=== PATIENT | female | born 1955 | race Caucasian/White ===

== ENCOUNTER 2020-06-23 09:47 | Day surgery (SDC) | payer OTHER ==
[2020-06-19 10:22] VITALS: BMI 31.4
[2020-06-23] MEDS ORDERED: ACETAMINOPHEN 325 MG TABLET (FP) ONE (12:23)
[2020-06-23] MEDS ORDERED: ACETAMINOPHEN 325 MG TABLET (FP) PO ONE (12:25)
[2020-06-23 12:36] VITALS: TEMP 97.8
[2020-06-23 13:05] VITALS: BP 183/74; PULSE 75
== END 2020-06-23 13:00 | disposition home or self-care (01) ==
LOC: FASU-ENDO 09:47
PROVIDERS: ATTEND Internal Medicine Gastroenterology
PROC: 0DJ08ZZ Inspection of Upper Intestinal Tract, Via Natural or Artificial Opening Endoscopic (ICD-10-PCS; principal; 2020-06-23 12:06)
DX: R12 Heartburn (principal); Z88.2 Allergy status to sulfonamides
CPT/HCPCS: 82962

== ENCOUNTER 2020-08-04 11:42 | Day surgery (SDC) | payer OTHER ==
[2020-08-02 14:11] VITALS: BMI 31.4
[2020-08-04] MEDS ORDERED: PROPOFOL 20 ML ONE ×3 (13:03)
[2020-08-04 13:52] VITALS: PULSE 77; TEMP 97.8
[2020-08-04 14:12] VITALS: BP 130/67
== END 2020-08-04 14:25 | disposition home or self-care (01) ==
LOC: FASU-ENDO 11:42
PROVIDERS: ATTEND Internal Medicine Gastroenterology
PROC: 0DJ08ZZ Inspection of Upper Intestinal Tract, Via Natural or Artificial Opening Endoscopic (ICD-10-PCS; principal; 2020-08-04 13:06)
DX: R10.13 Epigastric pain (principal); Z53.8 Procedure and treatment not carried out for other reasons; I10 Essential (primary) hypertension; E11.9 Type 2 diabetes mellitus without complications
CPT/HCPCS: 82962

== ENCOUNTER 2022-03-11 04:06 | Day surgery (SDC) | payer OTHER ==
[2022-03-07 13:18] VITALS: BMI 29.8
[2022-03-11] MEDS ORDERED: FENTANYL CITRATE/PF 50 MCG/ML VIAL ONE ×3 (11:02→11:27)
[2022-03-11] MEDS ORDERED: MIDAZOLAM HCL 2 MG/2 ML SINGLE DOSE VIAL ONE ×2 (11:02→11:21)
[2022-03-11] MEDS ORDERED: ONDANSETRON 4 MG/2 ML VIAL ONE (11:05)
[2022-03-11 13:32] VITALS: BP 121/50; PULSE 66; RESP 18; TEMP 97.9
== END 2022-03-11 13:20 | disposition home or self-care (01) ==
LOC: JASU-SURG 04:06
PROVIDERS: ATTEND Urology
PROC: 0TF4XZZ Fragmentation in Left Kidney Pelvis, External Approach (ICD-10-PCS; principal; 2022-03-11 10:00)
DX: N20.0 Calculus of kidney (principal)
CPT/HCPCS: 82962

== ENCOUNTER 2022-06-03 04:07 | Day surgery (SDC) | payer OTHER ==
[2022-05-29 11:49] VITALS: BMI 29.8
[2022-06-03 08:37] VITALS: RESP 20
[2022-06-03] MEDS ORDERED: ONDANSETRON 4 MG/2 ML VIAL ONE (11:52)
[2022-06-03] MEDS ORDERED: MIDAZOLAM HCL 2 MG/2 ML SINGLE DOSE VIAL ONE (11:52)
[2022-06-03 13:32] VITALS: TEMP 97.2
[2022-06-03 13:52] VITALS: BP 128/58; PULSE 70
== END 2022-06-03 13:17 | disposition home or self-care (01) ==
LOC: JASU-SURG 04:07
PROVIDERS: ATTEND Urology
PROC: 0TF3XZZ Fragmentation in Right Kidney Pelvis, External Approach (ICD-10-PCS; principal; 2022-06-03 10:00)
DX: N20.0 Calculus of kidney (principal)
CPT/HCPCS: 82962